=== PATIENT | female | born 1940 | race Caucasian/White ===

== ENCOUNTER 2019-07-14 08:49 | Day surgery (SDC) | payer MEDICARE, OTHER ==
[~2019-07-14] VITALS: Ht 162.6 cm; Wt 54.2 kg
[~2019-07-14 08:49] MED LIST: ASPI-1265 PO; BENA1TAB2 PO; ESCI5TAB PO; ESTR0.6261 PO; RABE20TA25 PO
[2019-07-14 09:16] VITALS: BP 118/51
[2019-07-14] MEDS ORDERED: OMEG1CAP PO (09:39)
[2019-07-14] MEDS ORDERED: METHENAMINE MANDELATE PO (09:51)
[2019-07-14] MEDS ORDERED: ESCI10TA PO (09:51)
[2019-07-14] MEDS ORDERED: LEVO75TA PO (09:51)
[2019-07-14] MEDS ORDERED: LACT1CAP65 PO (09:51)
[2019-07-14 10:52] VITALS: BP 135/50
== END 2019-07-14 11:15 | disposition home or self-care (01) ==
LOC: SSTAY O 08:49
PROVIDERS: ATTEND Radiology Diagnostic Radiology
DX: Z45.2 Encounter for adjustment and management of vascular access device (principal); E03.9 Hypothyroidism, unspecified; K21.9 Gastro-esophageal reflux disease without esophagitis; I25.10 Atherosclerotic heart disease of native coronary artery without angina pectoris; Z85.850 Personal history of malignant neoplasm of thyroid; Z88.2 Allergy status to sulfonamides; Z88.5 Allergy status to narcotic agent; Z88.8 Allergy status to other drugs, medicaments and biological substances; Z85.118 Personal history of other malignant neoplasm of bronchus and lung; Z79.82 Long term (current) use of aspirin; Z79.899 Other long term (current) drug therapy
CPT/HCPCS: 36590